=== PATIENT | male | born 1960 | race Caucasian/White ===

== ENCOUNTER 2019-02-15 15:57 | Emergency (ER) | payer OTHER ==
[~2019-02-15] VITALS: Ht 188 cm; Wt 97.5 kg
[~2019-02-15 15:57] MED LIST: ALPR0.5T6 PO; CYCL10TA2 PO; PANT40TA77 PO
[2019-02-15 17:13] LABS: BASO % 0 % (0-3); EOS # 0.1 x10^3/uL (0.0-0.7); EOS % 2 % (0-3); HEMATOCRIT 36.6 % (39.0-53.0); HEMOGLOBIN 12.7 g/dL (13.0-17.5); LYMPH # 1.8 x10^3/uL (1.0-4.8); LYMPH % 28 % (24-48); MEAN CORPUSCULAR HEMOGLOBIN 32 pg (25-35); MEAN CORPUSCULAR HGB CONC 35 g/dL (31-37); MEAN CORPUSCULAR VOLUME 91 fL (79-100); MONO # 0.5 x10^3/uL (0.0-1.1); MONO % 8 % (0-9); NEUT % 62 % (31-73); PLATELET COUNT 259 x10^3/uL (140-400); RED BLOOD COUNT 4.02 x10^6/uL (4.30-5.70); RED CELL DISTRIBUTION WIDTH 13.8 % (11.5-14.5); WHITE BLOOD COUNT 6.4 x10^3/uL (4.0-11.0)
[2019-02-15 17:23] LABS: CALCIUM 8.6 mg/dL (8.5-10.1); GFR 76.5; POTASSIUM 3.5 mmol/L (3.5-5.1)
--- NOTE | 2019-02-15 17:26 | PHYS DOC ---
Past Medical History Past Medical History: No Pertinent History (SAMY MESSINA) Additional Past Surgical Histo: KNEE (SAMY MESSINA) Alcohol Use: None Drug Use: None (SAMY MESSINA) Adult General Chief Complaint Chief Complaint: ABDOMINAL PAIN HPI HPI Patient is a 58 year old male presents to the ED for abdominal pain �2 days. Patient was seen by his PCP today and had a CT ordered. States he was sent to the ED because his CT showed possible early appendicitis. Patient continuing to have intermittent right lower abdominal pain. Describes the pain as sharp. Rates the pain as 6 out of 10. Associated symptoms include nausea. Denies fever, vomiting, chest pain, shortness of breath, diarrhea, headache, chills. (SAMY MESSINA) Review of Systems Review of Systems Constitutional: Denies fever or chills [] Eyes: Denies change in visual acuity, redness, or eye pain [] HENT: Denies nasal congestion or sore throat [] Respiratory: Denies cough or shortness of breath [] Cardiovascular: No additional information not addressed in HPI [] GI: Complains of abdominal pain and nausea. Denies vomiting, bloody stools or diarrhea [] : Denies dysuria or hematuria [] Musculoskeletal: Denies back pain or joint pain [] Integument: Denies rash or skin lesions [] Neurologic: Denies headache, focal weakness or sensory changes [] All other systems were reviewed and found to be within normal limits, except as documented in this note. (SAMY MESSINA) Current Medications Current Medications Current Medications Medications (Trade) Dose Ordered Sig/Renetta Start Time Stop Time Status Last Admin Dose Admin Acetaminophen (Tylenol) 500 mg PRN Q6HRS PRN 02/15/19 19:15 02/15/19 20:05 DC Acetaminophen/ Hydrocodone Bitart (Lortab 5/325) 1 tab PRN Q4HRS PRN 02/15/19 19:15 02/15/19 20:05 DC Alprazolam (Xanax) 0.5 mg PRN Q6HRS PRN 02/15/19 19:15 02/15/19 20:05 DC Cyclobenzaprine HCl (Flexeril) 10 mg TID 02/15/19 21:00 02/15/19 20:05 DC Fentanyl Citrate (Fentanyl 2ml Vial) 50 mcg PRN Q2HR PRN 02/15/19 19:15 02/15/19 20:05 DC Morphine Sulfate (Morphine Sulfate) 2 mg PRN Q2HR PRN 02/15/19 19:30 02/15/19 20:05 DC Ondansetron HCl (Zofran) 4 mg PRN Q8HRS PRN 02/15/19 19:30 02/15/19 20:05 DC Pantoprazole Sodium (Protonix) 40 mg DAILYAC 02/16/19 07:30 02/15/19 20:05 DC Piperacillin Sod/ Tazobactam Sod 3.375 gm/Sodium Chloride 50 ml @ 100 mls/hr 1X ONCE 02/15/19 19:00 02/15/19 19:29 DC 02/15/19 19:29 100 MLS/HR Sodium Chloride 1,000 ml @ 100 mls/hr Q10H 02/15/19 19:15 02/15/19 20:05 DC (CHIARA MORRISON DO) Allergies Allergies Allergies Coded Allergies Type Severity Reaction Last Updated Verified No Known Drug Allergies 01/26/14 No (CHIARA MORRISON DO) Physical Exam Physical Exam Constitutional: Well developed, well nourished, no acute distress, non-toxic appearance. [] HENT: Normocephalic, atraumatic Cardiovascular:Heart rate regular rhythm, no murmur [] Lungs & Thorax: Bilateral breath sounds clear to auscultation [] Abdomen: Bowel sounds normal, soft, mild diffuse right sided abdominal tenderness. no masses, no pulsatile masses. [] Skin: Warm, dry, no erythema, no rash. [] Back: No tenderness, no CVA tenderness. [] Extremities: No tenderness, no cyanosis, no clubbing, ROM intact, no edema. [] Neurologic: Alert and oriented X 3, normal motor function, normal sensory function, no focal deficits noted. [] Psychologic: Affect normal, judgement normal, mood normal. [] (SAMY MESSINA) Current Patient Data Vital Signs Vital Signs Date Time Temp Pulse Resp B/P (MAP) Pulse Ox O2 Delivery O2 Flow Rate FiO2 02/15/19 19:27 50 16 141/84 (103) 98 Room Air 02/15/19 16:00 97.5 97.5 (CHIARA MORRISON DO) Lab Values Laboratory Tests Test 02/15/19 16:52 White Blood Count 6.4 x10^3/uL (4.0-11.0) Red Blood Count 4.02 x10^6/uL (4.30-5.70) L Hemoglobin 12.7 g/dL (13.0-17.5) L Hematocrit 36.6 % (39.0-53.0) L Mean Corpuscular Volume 91 fL (79-100) Mean Corpuscular Hemoglobin 32 pg (25-35) Mean Corpuscular Hemoglobin Concent 35 g/dL (31-37) Red Cell Distribution Width 13.8 % (11.5-14.5) Platelet Count 259 x10^3/uL (140-400) Neutrophils (%) (Auto) 62 % (31-73) Lymphocytes (%) (Auto) 28 % (24-48) Monocytes (%) (Auto) 8 % (0-9) Eosinophils (%) (Auto) 2 % (0-3) Basophils (%) (Auto) 0 % (0-3) Neutrophils # (Auto) 4.0 x10^3/uL (1.8-7.7) Lymphocytes # (Auto) 1.8 x10^3/uL (1.0-4.8) Monocytes # (Auto) 0.5 x10^3/uL (0.0-1.1) Eosinophils # (Auto) 0.1 x10^3/uL (0.0-0.7) Basophils # (Auto) 0.0 x10^3/uL (0.0-0.2) Sodium Level 144 mmol/L (136-145) Potassium Level 3.5 mmol/L (3.5-5.1) Chloride Level 109 mmol/L (98-107) H Carbon Dioxide Level 29 mmol/L (21-32) Anion Gap 6 (6-14) Blood Urea Nitrogen 15 mg/dL (8-26) Creatinine 1.0 mg/dL (0.7-1.3) Estimated GFR (Cockcroft-Gault) 76.5 BUN/Creatinine Ratio 15 (6-20) Glucose Level 89 mg/dL (70-99) Calcium Level 8.6 mg/dL (8.5-10.1) Total Bilirubin 0.3 mg/dL (0.2-1.0) Aspartate Amino Transferase (AST) 16 U/L (15-37) Alanine Aminotransferase (ALT) 18 U/L (16-63) Alkaline Phosphatase 80 U/L (46-116) Total Protein 6.4 g/dL (6.4-8.2) Albumin 3.4 g/dL (3.4-5.0) Albumin/Globulin Ratio 1.1 (1.0-1.7) Lipase 113 U/L (73-393) Laboratory Tests 02/15/19 16:52 Laboratory Tests 02/15/19 16:52 (CHIARA MORRISON DO) EKG EKG [] (SAMY MESSINA) Radiology/Procedures Radiology/Procedures [] (SAMY MESSINA) Course & Med Decision Making Course & Med Decision Making Pertinent Labs and Imaging studies reviewed. (See chart for details) []Discussed case with on-call surgery, Dr. Barney. States to give patient Zosyn in the ED. Will review scan. After reviewing scan he decided that patient can go to surgery tomorrow morning at 7 AM. Patient wishes to be discharged to take care of his dog. Dr. Barney states he can be discharged and come back tomorrow morning for surgery. Patient well appearing. No signs of acute distress or peritoneal signs. Discussed the importance of returning tomorrow for surgery and reasons to return sooner. Patient understands and agrees with plan. (SAMY MESSINA) Dragon Disclaimer Dragon Disclaimer This electronic medical record was generated, in whole or in part, using a voice recognition dictation system. (SAMY MESSINA) Departure Departure Impression: Primary Impression: Abdominal pain Additional Impression: Appendicitis Disposition: HOME, SELF-CARE Condition: IMPROVED Referrals: OLAF VARELA (PCP) AMBER BARNEY MD Patient Instructions: Appendicitis Attending Signature Attending Signature I have reviewed the PA/CHIEF FINANCIAL OFFICER's note and plan of care. I was available for consultation as needed during the patient's visit in the emergency department. I agree with the clinical impression, plan, and disposition. (CHIARA MORRISON DO) Problem Qualifiers SAMY MESSINA Feb 15, 2019 17:26 CHIARA MORRISON DO Feb 16, 2019 01:35
[2019-02-15 17:37] LABS: ALBUMIN 3.4 g/dL (3.4-5.0); ALBUMIN/GLOBULIN RATIO 1.1 (1.0-1.7); TOTAL BILIRUBIN 0.3 mg/dL (0.2-1.0); TOTAL PROTEIN 6.4 g/dL (6.4-8.2)
[2019-02-15] MEDS ORDERED: PIPERACILLIN/TAZOBACTAM 3.375 GM in IV NORMAL SALINE 50ML 50 ML IV ONE (19:00)
[2019-02-15] MEDS ORDERED: IV NORMAL SALINE 1000ML BAG 1,000 ML IV SCH (19:15)
[2019-02-15] MEDS ORDERED: HYDROcodone/APAP 5/325MG 1 TAB TABLET PO PRN (19:15)
[2019-02-15] MEDS ORDERED: fentaNYL PF VIAL 100 MCG/2 ML VIAL IV PRN (19:15)
[2019-02-15] MEDS ORDERED: ACETAMINOPHEN 500 MG TABLET PO PRN (19:15)
[2019-02-15] MEDS ORDERED: ALPRAZolam 0.5 MG TABLET PO PRN (19:15)
[2019-02-15 19:27] VITALS: BP 141/84
[2019-02-15] MEDS ORDERED: ONDANSETRON PF 4 MG/2 ML VIAL. IV PRN (19:30)
[2019-02-15] MEDS ORDERED: MORPHINE SULFATE 2 MG/ML VIAL. IV PRN (19:30)
[2019-02-15] MEDS ORDERED: CYCLOBENZAPRINE 10 MG TABLET. PO SCH (21:00)
[2019-02-16] MEDS ORDERED: OLME40TA12 PO (07:25)
[2019-02-16] MEDS ORDERED: BUPR300T4 PO (07:25)
[2019-02-16] MEDS ORDERED: AMLO10TA8 PO (07:26)
[2019-02-16] MEDS ORDERED: MELO15TA23 PO (07:26)
[2019-02-16] MEDS ORDERED: PANTOPRAZOLE 40 MG TABLET.DR. PO SCH (07:30)
== END 2019-02-15 20:05 | disposition home or self-care (01) ==
LOC: ER 15:57
DX: K37 Unspecified appendicitis (principal)
CPT/HCPCS: 36415; 80053; 83690; 85025; 96365; 99284; J2543

== ENCOUNTER 2019-02-16 06:31 | Observation (INO) | payer OTHER ==
[~2019-02-16] VITALS: Ht 188 cm; Wt 97.5 kg
[2019-02-16] VITALS (9 sets, daily range): BP systolic 114–134; BP diastolic 55–81
[2019-02-16] MEDS ORDERED: ONDANSETRON PF 4 MG/2 ML VIAL. ONE (07:03)
[2019-02-16] MEDS ORDERED: DEXAMETHASONE SOD PHOS 4 MG/ML VIAL ONE ×2 (07:03→07:35)
[2019-02-16] MEDS ORDERED: PROPOFOL 20 ML IV ONE (07:04)
[2019-02-16] MEDS ORDERED: SUCCINYLCHOLINE 200 MG/10 ML VIAL. ONE (07:04)
[2019-02-16] MEDS ORDERED: ROCURONIUM 50 MG/5 ML VIAL. ONE (07:04)
[2019-02-16] MEDS ORDERED: fentaNYL PF VIAL 100 MCG/2 ML VIAL ONE ×2 (07:04→09:00)
[2019-02-16] MEDS ORDERED: LIDOCAINE 2% PF 5 ML VIAL. ONE (07:04)
[2019-02-16] MEDS ORDERED: BUPIVACAINE-EPI 0.5%-1:200000 MPF 30 ML VIAL. INJ ONE (07:15)
[2019-02-16] MEDS ORDERED: BUPR300T4 PO (07:25)
[2019-02-16] MEDS ORDERED: OLME40TA12 PO (07:25)
[2019-02-16] MEDS ORDERED: AMLO10TA8 PO (07:26)
[2019-02-16] MEDS ORDERED: MELO15TA23 PO (07:26)
--- NOTE | 2019-02-16 07:28 | PDOC1 ---
History and Physical Date of Admission Date of Admission DATE: 02/16/19 TIME: 07:23 Identification/Chief Complaint Chief Complaint Acute appendicitis Source Source: Chart review, Patient History of Present Illness History of Present Illness Ramiro is a 58-year-old male who was sent to the [facility] emergency department yesterday evening by his primary physician after having a CT scan done suggesting possible early appendicitis. He has had some right lower quadrant abdominal pain or an episode of nausea and vomiting. Past Medical History Cardiovascular: No pertinent hx Pulmonary: No pertinent hx Renal/: No pertinent hx Past Surgical History Past Surgical History No previous abdominal surgery Social History Smoke: <1 pack per day Current Medications Current Medications Current Medications Bupivacaine HCl/ Epinephrine Bitart (Sensorcain-Epi 0.5%-1:603983 Mpf) 30 ml 1X ONCE INJ ; Start 02/16/19 at 07:15; Stop 02/16/19 at 07:16; Status DC Dexamethasone Sodium Phosphate (Decadron) 4 mg STK-MED ONCE .ROUTE ; Start 02/16/19 at 07:03; Stop 02/16/19 at 07:04; Status DC Ondansetron HCl (Zofran) 4 mg STK-MED ONCE .ROUTE ; Start 02/16/19 at 07:03; Stop 02/16/19 at 07:04; Status DC Bacitracin 50886 unit/Sodium Chloride 500 ml @ 500 mls/hr 1X ONCE IRR ; Start 02/16/19 at 07:30; Stop 02/16/19 at 08:29 Propofol 20 ml @ As Directed STK-MED ONCE IV ; Start 02/16/19 at 07:04; Stop 02/16/19 at 07:04; Status DC Lidocaine HCl (Lidocaine Pf 2% Vial) 5 ml STK-MED ONCE .ROUTE ; Start 02/16/19 at 07:04; Stop 02/16/19 at 07:04; Status DC Succinylcholine Chloride (Anectine) 200 mg STK-MED ONCE .ROUTE ; Start 02/16/19 at 07:04; Stop 02/16/19 at 07:04; Status DC Rocuronium [place] (Zemuron) 50 mg STK-MED ONCE .ROUTE ; Start 02/16/19 at 07:04; Stop 02/16/19 at 07:04; Status DC Fentanyl Citrate (Fentanyl 2ml Vial) 100 mcg STK-MED ONCE .ROUTE ; Start 02/16/19 at 07:04; Stop 02/16/19 at 07:05; Status DC Cefazolin Sodium/ Dextrose 50 ml @ 100 mls/hr 1X PREOP PRN IV PRIOR TO PROCEDURE; Start 02/16/19 at 06:00; Stop 02/17/19 at 05:59 Metronidazole 100 ml @ 100 mls/hr 1X ONCE IV ; Start 02/16/19 at 07:15; Stop 02/16/19 at 08:14 Cefazolin Sodium/ Dextrose 50 ml @ 100 mls/hr 1X ONCE IV ; Start 02/16/19 at 07:15; Stop 02/16/19 at 07:44; Status UNV Metronidazole 100 ml @ 100 mls/hr 1X ONCE IV ; Start 02/16/19 at 07:15; Stop 02/16/19 at 08:14; Status UNV Active Scripts Active Reported Pantoprazole Sodium (Pantoprazole Sodium) 40 Mg Tablet.dr 1 Tab PO DAILY Cyclobenzaprine Hcl 10 Mg Tablet 1 Tab PO TID Alprazolam 0.5 Mg Tablet 0.5 Mg PO PRN Q6HRS PRN Allergies Allergies: Coded Allergies: No Known Drug Allergies (Unverified , 01/26/14) ROS Review of System Negative with exception of present complaints Physical Exam General: Alert, No acute distress HEENT: Atraumatic Lungs: Normal air movement Heart: RRR Abdomen: Soft, Other (mildly tender to palpation right lower quadrant) Skin: Other (warm, dry) Neuro: Normal speech Labs Labs White count in the emergency department last night was not elevated Images Images CT scan done yesterday is reviewed VTE Prophylaxis Ordered VTE Prophylaxis Devices: Yes VTE Pharmacological Prophylaxi: No Assessment/Plan Assessment/Plan Early acute appendicitis Discussed appendectomy with Ramiro last night explaining risks including but not limited to bleeding, infection, injury to surrounding structures requiring further surgical intervention, or an open procedure and the chance that this is NOT an acute appendicitis (i.e. mesenteric adenitis, gastroenteritis). He explains that he lives alone and has a dog and has been away from home all day. Requesting surgery in the morning so that he can go home this evening to tend to his dog. Given lab results and exam I feel is reasonable to schedule electively in the morning after an IV dose of Zosyn. He will return in the morning. AMBER BARNEY MD Feb 16, 2019 07:28
[2019-02-16] MEDS ORDERED: BACITRACIN 50,000 UNIT in IV NORMAL SALINE 500ML BAG 500 ML IRR ONE (07:30)
[2019-02-16] MEDS ORDERED: MIDAZOLAM HCL/PF 2 MG/2 ML VIAL. ONE (07:35)
[2019-02-16] MEDS ORDERED: IV NORMAL SALINE 1000ML BAG 1,000 ML IV ONE (07:45)
[2019-02-16] MEDS ORDERED: IV RINGERS,LACTATED 1000ML 1,000 ML IV SCH ×2 (07:45→09:00)
[2019-02-16] MEDS ORDERED: ceFAZolin 2GM PREMIX 2 GM/50 ML BAG IV ONE (08:00)
[2019-02-16] MEDS ORDERED: SEVOFLURANE 31 TO 60 MINUTES. IH ONE (08:21)
[2019-02-16] MEDS ORDERED: GLYCOPYRROLATE 1 MG/5 ML VIAL. ONE (08:22)
[2019-02-16] MEDS ORDERED: NEOSTIGMINE METHYLSULFATE 5 MG/5 ML SYRINGE. ONE (08:22)
[2019-02-16] MEDS ORDERED: KETOROLAC 30 MG/ML VIAL. ONE (08:29)
[2019-02-16] MEDS ORDERED: POTASSIUM CL 20MEQ-0.45% NACL 1,000 ML IV SCH (08:56)
[2019-02-16] MEDS ORDERED: IV NORMAL SALINE 1000ML BAG 1,000 ML IV SCH (08:56)
[2019-02-16] MEDS ORDERED: PROCHLORPERAZINE 10 MG/2 ML VIAL. IV PRN (09:00)
[2019-02-16] MEDS ORDERED: fentaNYL PF VIAL 100 MCG/2 ML VIAL IV PRN (09:00)
[2019-02-16] MEDS ORDERED: 0.9 % SODIUM CHLORIDE 10 ML DISP.SYRIN. IV PRN (09:00)
[2019-02-16] MEDS ORDERED: NALOXONE 0.4 MG/ML VIAL. IV PRN (09:00)
[2019-02-16] MEDS ORDERED: DEXTROSE 50% 25 GM / 50ML DISP.SYRIN. IV PRN (09:00)
[2019-02-16] MEDS ORDERED: IV DEXTROSE 5% 250 ML BAG. IV PRN (09:00)
[2019-02-16] MEDS ORDERED: DOCUSATE SODIUM 100 MG CAPSULE. PO SCH (09:00)
[2019-02-16] MEDS ORDERED: HYDROmorphone 2 MG/ML VIAL IV PRN ×2 (09:00)
[2019-02-16] MEDS ORDERED: diphenhydrAMINE HCL 25 MG CAPSULE PO PRN (09:00)
[2019-02-16] MEDS ORDERED: oxyCODONE/APAP 5/325 1 TAB TABLET PO PRN ×2 (09:00)
[2019-02-16] MEDS ORDERED: ONDANSETRON PF 4 MG/2 ML VIAL. IV PRN ×2 (09:00)
[2019-02-16] MEDS ORDERED: MORPHINE SULFATE 2 MG/ML VIAL. ONE (09:01)
[2019-02-16] MEDS: fentaNYL PF VIAL 100 MCG/2 ML VIAL IV PRN ×2 (09:04→09:10)
[2019-02-16] MEDS: MORPHINE SULFATE 2 MG/ML VIAL. IV PRN ×2 (09:05→09:16)
--- NOTE | 2019-02-16 09:08 | PDOC ---
BRIEF OPERATIVE NOTE Date: Feb 16, 2019 Pre-Op Diagnosis acute appendicitis Post-Op Diagnosis same Procedure Performed l/s appendectomy Surgeon Guzman Anesthesia Type: General Blood Loss 10cc IV Fluid 750cc Specimens Obtained appendix Findings early inflammatory changes, no perforation Complications none Operative Note Wk # [id number] AMBER BARNEY MD Feb 16, 2019 09:08
--- NOTE | 2019-02-16 09:16 | OP ---
DATE OF SURGERY: 02/16/2019 PREOPERATIVE DIAGNOSIS: Acute appendicitis. POSTOPERATIVE DIAGNOSIS: Acute appendicitis. PROCEDURE: Laparoscopic appendectomy. SURGEON: Amish Barney MD ANESTHESIA: General endotracheal. ESTIMATED BLOOD LOSS: 10. INTRAVENOUS FLUIDS: 750. INDICATIONS: The patient is a 58-year-old, with right lower quadrant pain and a CT scan yesterday suggesting early appendicitis. OPERATIVE FINDINGS: The appendix was mildly engorged and erythematous, however, no purulence or perforation seen. Remainder of the exam of the abdomen unremarkable. DESCRIPTION OF PROCEDURE: The patient brought to the operating suite after voiding and given a general endotracheal anesthetic. The abdomen prepped and draped in usual sterile fashion. Supraumbilical incision infiltrated with local, incised and a 5 mm Visiport used to safely gain access into the abdominal cavity taking care to avoid injury to abdominal contents. Pneumoperitoneum established, camera inserted, inspection carried out. Under direct vision, the suprapubic and left lower quadrant ports were placed and the supraumbilical port converted to 12 mm for instrumentation. With the table rolled to the left in some Trendelenburg, the appendix was freed from the lateral wall with LigaSure, being careful to avoid injury to the adjacent bowel. A rent created between the base of the appendix and the mesoappendix, vascular load of the Endo-STEFFANY to transect the Mesoappendix, tissue load of the Endo-STEFFANY for the appendiceal base. Appendix placed in an EndoCatch bag. Staple lines augmented with medium large clips for hemostasis. Intra-abdominal pressure decreased to 6 cm of water. No bleeding from the appendiceal stump or mesoappendix was seen. Table returned to level. Appendix delivered through the supraumbilical port, incision closed with interrupted 0 Vicryl suture. At 6 cm intraabdominal pressure, no bleeding from the supraumbilical port site closure or from the left lower quadrant port site after its removal. Abdomen decompressed, camera removed, no bleeding seen. Skin incisions closed with subcuticular 4-0 Monocryl. Steri-Strips and sterile dressings applied. The patient awakened from his anesthetic and taken to the recovery room in satisfactory condition. AMISH BARNEY MD DR: UMM/anjali JOB#: [id number] / [id number]
[2019-02-16 12:11] LABS: HEMATOCRIT 38.2 % (39.0-53.0); HEMOGLOBIN 12.8 g/dL (13.0-17.5); RED BLOOD COUNT 4.18 x10^6/uL (4.30-5.70); WHITE BLOOD COUNT 12.5 x10^3/uL (4.0-11.0)
[2019-02-16 12:27] LABS: CALCIUM 8.4 mg/dL (8.5-10.1); GFR 76.5; POTASSIUM 3.6 mmol/L (3.5-5.1)
[2019-02-16] MEDS ORDERED: ENOXAPARIN 40 MG/0.4 ML SYRINGE. SQ SCH (21:00)
--- NOTE | 2019-02-20 17:07 | PATHOLOGY ---
[facility] Accession Number: [id number] . 01 Material submitted: . appendix - APPENDIX . 01 Clinical history: . Appendicitis . 02 Diagnosis: Appendix, appendectomy: - Appendiceal diverticuli showing chronic diverticulitis with focally increased eosinophils. - Fibrofatty obliteration of distal appendiceal lumen. (JPM:[facility] 02/20/2019) [facility] 02/20/2019 1620 Local . 02 Comment: Sections of the appendix reveal multiple appendiceal diverticuli showing chronic inflammation with focally increased eosinophils. The diverticuli show no evidence of rupture. There is no evidence of malignancy. (JPM:[facility] 02/20/2019) . 02 Electronically signed: . Ramiro Thornton MD, Pathologist NPI- [id number] . 01 Gross description: . Received in formalin labeled "Raultheresa Ramiro, appendix," is an appendix measuring 6.5 cm in length by 0.9 cm in diameter, with a moderate amount of attached mesoappendix measuring up to 1.5 cm in thickness. The appendiceal serosa is smooth and pale amaya to focally hemorrhagic in appearance, displaying an area of van-amaya possible adhesions and a pale yellow subserosal possible fat deposit measuring 0.5 cm in maximum dimension and extending to within 4.8 cm of the proximal margin. The proximal margin is closed with a linear staple line; this area is inked black. Serial sectioning reveals a pinpoint lumen. The mucosa grossly appears to "pouch" out into the mesoappendix in two distinct locations, the nearest extending to within 3.0 cm of the proximal margin. Sectioning through the possible subserosal fat deposit also reveals gross communication with the appendix mucosa. The proximal margin and bisected distal tip are submitted in cassette A1. Additional artists' booking representative sections are submitted in cassettes A2 through A4, to include all grossly identifiable areas of mucosal "pouching". (DAC; 02/17/2019) XDC/XDC 02/17/2019 0902 Local . 02 Pathologist provided ICD-10: K57.92 . 02 CPT . 276410 Specimen Comment: A courtesy copy of this report has been sent to Specimen Comment: [phone], . Specimen Comment: Report sent to / DR VARELA Performed at: 01 [facility] [address], [place] [id number] MD Ace Barboza MD Phone: [phone] Performed at: 02 [facility] [address] [place], [place] [id number] MD Ramiro Thornton MD Phone: [phone]
== END 2019-02-16 19:17 | disposition home or self-care (01) ==
LOC: SURG 06:31 → EDSTATUS 08:00 → 4 NORTH 09:00
PROVIDERS: ADMIT Surgery; ATTEND Surgery
DX: K35.80 Unspecified acute appendicitis (principal); R11.2 Nausea with vomiting, unspecified; F17.210 Nicotine dependence, cigarettes, uncomplicated
CPT/HCPCS: 36415; 44970; 80048; 85027; 88304; 96361; 96374; A7015; G0378; G0379; J0330; J0696; J1100; J1170; J1885; J2001; J2250; J2270; J2405; J2704; J2710; J3010; J3490; J7030; J7040